=== PATIENT | female | born 1955 | race Caucasian/White ===

== ENCOUNTER 2016-09-01 01:10 | Emergency (ER) | payer BC ==
[~2016-09-01] VITALS: Ht 162.6 cm; Wt 104.3 kg
[~2016-09-01 01:10] MED LIST: ALPR0.257 PO; AMLO1CAP12 PO; CELE200C PO; CIPR500T94 PO; CITA20TA5 PO; ESTR1TAB15 PO; HYDR-2666 PO; LISI-334 PO; PRAV40TA2 PO; TRAM50TA PO; ZOLP10TA4 PO
--- NOTE | 2016-09-01 01:58 | PHYS DOC ---
Past Medical History Past Medical History: Anxiety, Arthritis, CHF, Hypertension Past Surgical History: Appendectomy, Hysterectomy, Knee Replacement Additional Past Surgical Histo: Heart cath, bilat knee replacements Alcohol Use: None Drug Use: None Adult General Chief Complaint Chief Complaint: MECHANICAL FALL HPI HPI 60-year-old female who states she fell while trying to get out of her car and fell onto her right side in which she states she fell on her right knee and her right wrist. She denies hitting her head or having any loss consciousness. Her fall occurred approximately one hour prior to arrival. She now complains of significant neck tenderness, right wrist pain, right hip pain, right knee pain. She has additional complaints of a left tibial surface pain that has been present for the last several weeks. She denies any chest pain or shortness breath. She denies any abdominal pain. She denies any headache. She denies any history of it being on any blood thinning medications. She rates her pain a 6/ 10 on the pain scale and described as an aching sensation in the areas noted above. She was fully ambulatory upon arrival. Review of Systems Review of Systems Constitutional: Denies fever or chills [] Eyes: Denies change in visual acuity, redness, or eye pain [] HENT: Denies nasal congestion or sore throat [] Respiratory: Denies cough or shortness of breath [] Cardiovascular: No additional information not addressed in HPI [] GI: Denies abdominal pain, nausea, vomiting, bloody stools or diarrhea [] : Denies dysuria or hematuria [] Musculoskeletal: Denies back pain, has joint pain [] Integument: Denies rash or skin lesions [] Neurologic: Denies headache, focal weakness or sensory changes [] Endocrine: Denies polyuria or polydipsia [] Current Medications Current Medications Current Medications Medications (Trade) Dose Ordered Sig/Emili Start Time Stop Time Status Last Admin Dose Admin Acetaminophen/ Hydrocodone Bitart (Lortab 5/325) 1 tab 1X ONCE 09/01/16 02:00 09/01/16 02:01 DC 09/01/16 02:56 1 TAB Allergies Allergies Allergies Coded Allergies Type Severity Reaction Last Updated Verified latex Allergy Intermediate 04/09/16 Yes Physical Exam Physical Exam Constitutional: Well developed, well nourished, no acute distress, non-toxic appearance. [] HENT: Normocephalic, atraumatic, bilateral external ears normal, oropharynx moist, no oral exudates, nose normal, in c-collar with noted tenderness to the C7 area, no palpable deformity. [] Eyes: PERRLA, EOMI, conjunctiva normal, no discharge. [] Neck: Normal range of motion, no tenderness, supple, no stridor. [] Cardiovascular:Heart rate regular rhythm, no murmur [] Lungs & Thorax: Bilateral breath sounds clear to auscultation [] Abdomen: Bowel sounds normal, soft, no tenderness, no masses, no pulsatile masses. [] Skin: Warm, dry, no erythema, no rash. [] Back: No tenderness, no CVA tenderness. [] Extremities: Moderate tenderness to the right hip and right wrist with no palpable deformity or crepitus, moderate tenderness to the left tibial surface with no palpable deformity or cellulitis seen, no cyanosis, no clubbing, ROM intact, no edema. [] Neurologic: Alert and oriented X 3, normal motor function, normal sensory function, no focal deficits noted. [] Psychologic: Affect normal, judgement normal, mood normal. [] Current Patient Data Vital Signs Vital Signs Date Time Temp Pulse Resp B/P Pulse Ox O2 Delivery O2 Flow Rate FiO2 09/01/16 03:55 78 157/72 97 Room Air 09/01/16 01:15 97.8 18 97.8 EKG EKG [] Radiology/Procedures Radiology/Procedures CT of the cervical spine reveals the following: There is no cervical spine fracture. Occipital condyles articulate normally with the lateral masses of C1. The odontoid is intact. There is reversal of cervical lordosis but no anterolisthesis or retrolisthesis is appreciated. There is no perching of the facets. Degenerative disc height loss is noted at C4-5, C5-6. There is bilateral uncovertebral hypertrophy at C4-5 causing moderate right mild left foraminal stenosis. There is also bilateral uncovertebral hypertrophy at C5-6 causing moderate bilateral foraminal stenosis. Correlate for right C5 or bilateral C6 radiculopathy symptoms. Soft tissues of the neck show no acute abnormality. Lung apices are clear. Right Wrist 3 View: Negative for any obvious fracture Right hip and AP Pelvis: Negative for any obvious fracture Right Knee 3 View: Negative for any obvious fracture Tibia and fibula left leg view: Negative for any obvious fracture Course & Med Decision Making Course & Med Decision Making Pertinent Labs and Imaging studies reviewed. (See chart for details) 60-year-old female who had a traumatic fall while trying to get out of her car will have x-rays of her right knee, right hip, and right wrist and left tibial area to rule out any acute fractures or bony issues. CT of her cervical spine will also be obtained. Patient does have range of motion in all her affected extremities and I deemed her to be a low risk for any fracture but I counseled her at length that we will interpret her films and and have the radiologist read them in the morning and call her if there are any acute findings. A dose of oral Mantador will be given for her pain. CT of her cervical spine was negative for any acute fracture. Plain views of her right wrist, right hip, right knee, and tibia fibula of the left lower extremity were negative for any acute fracture. The patient was placed in a Velcro wrist splint with strict instructions to remain in the splint and she can receive follow-up in the next several days with her primary care doctor and to return to the ER if she develops any worsening of her pain. She was given a prescription for Mantador for her pain. She was discharged without incident. Dragon Disclaimer Dragon Disclaimer This electronic medical record was generated, in whole or in part, using a voice recognition dictation system. Departure Departure Impression: Primary Impression: Right wrist injury Additional Impression: Neck pain Disposition: 01 HOME, SELF-CARE Condition: STABLE Referrals: BEST RYAN MD (PCP) Patient Instructions: Splint Care, [id number] Additional Instructions: Please follow up with your primary doctor in the next 2-3 days for your recent wrist injury. Remain in your splint until you can be followed. Take motrin or tylenol for your pain. Return to the ER if you develop any worsening of your symptoms. Scripts Hydrocodone/Apap 5-325 (Mantador 5-325 Tablet)1 Each Tablet1 Tab PO PRN Q6HRS PRN PAIN #10 TAB Prov:JOYA FLOOD DO 09/01/16 Problem Qualifiers JOYA FLOOD DO Sep 01, 2016 01:58
[2016-09-01] MEDS ORDERED: HYDROCODONE/APAP 5/325MG TABLET. PO ONE (02:00)
--- NOTE | 2016-09-01 03:13 | RAD ---
PQRS STATEMENT One or more of the following individualized dose reduction techniques were utilized for this study: 1.Automated exposure control 2.Adjustment of the mA and/or kV according to patient size 3.Use of iterative reconstruction technique CT cervical spine Indication:neck pain post fall on ice tonight Reason: neck pain POST FALL ON ICE / Spl. Instructions: / History: Comparison: None] Technique: Multiple contiguous axial images were obtained through the cervical spine. Coronal and sagittal reformations were created. Findings: There is no cervical spine fracture. Occipital condyles articulate normally with the lateral masses of C1. The odontoid is intact. There is reversal of cervical lordosis but no anterolisthesis or retrolisthesis is appreciated. There is no perching of the facets. Degenerative disc height loss is noted at C4-5, C5-6. There is bilateral uncovertebral hypertrophy at C4-5 causing moderate right mild left foraminal stenosis. There is also bilateral uncovertebral hypertrophy at C5-6 causing moderate bilateral foraminal stenosis. Correlate for right C5 or bilateral C6 radiculopathy symptoms. Soft tissues of the neck show no acute abnormality. Lung apices are clear. Impression: Degenerative disc disease greatest at C4-5 and C5-6. No cervical spine fracture. Electronically signed by: Cholo Perez (Sep 01, 2016 03:12:51)
[2016-09-01] MEDS ORDERED: HYDR-971 PO (03:39)
[2016-09-01 03:55] VITALS: BP 157/72
--- NOTE | 2016-09-01 07:43 | RAD ---
Right knee, 3 views, 09/01/2016: History: Fall, pain No fracture or dislocation is identified. No significant joint effusion is seen. IMPRESSION: No acute right knee abnormality is detected. Left tibia and fibula, 2 views, 09/01/2016: A total knee prosthesis is in place in satisfactory position. No acute fracture is identified. There is subcutaneous edema about the lower leg. IMPRESSION: No acute bony abnormality is detected. Pelvis with right hip, 3 views, 09/01/2016: No fracture or dislocation is identified. The hip joint spaces are well-maintained with only minimal marginal spurring.
--- NOTE | 2016-09-01 07:45 | RAD ---
Right wrist, 3 views, 09/01/2016: History: Fall, pain No acute fracture or dislocation is identified. There is minimal degenerative change at the radiocarpal articulation and the first CMC joint. IMPRESSION: No acute bony abnormality is detected.
== END 2016-09-01 03:56 | disposition home or self-care (01) ==
LOC: ER 01:10
DX: S69.91XA Unspecified injury of right wrist, hand and finger(s), initial encounter (principal); M54.2 Cervicalgia; M25.551 Pain in right hip; M19.90 Unspecified osteoarthritis, unspecified site; I11.0 Hypertensive heart disease with heart failure; I50.9 Heart failure, unspecified; Z91.040 Latex allergy status; W19.XXXA Unspecified fall, initial encounter; Y93.89 Activity, other specified; Y92.89 Other specified places as the place of occurrence of the external cause; Y99.8 Other external cause status
CPT/HCPCS: 29125; 72125; 73110; 73502; 73562; 73590; 99284-25

== ENCOUNTER 2016-12-05 19:52 | Emergency (ER) | payer BC ==
[~2016-12-05 19:52] MED LIST changes: +HYDR-971 PO
[2016-12-05 20:24] VITALS: BP 142/62
[2016-12-05] MEDS ORDERED: NAPR500T8 PO (21:22)
[2016-12-05] MEDS ORDERED: HYDR-971 PO (21:22)
[2016-12-05] MEDS ORDERED: METH4TAB2 PO (21:22)
--- NOTE | 2016-12-05 21:23 | PHYS DOC ---
Past Medical History Past Medical History: Anxiety, Arthritis, CHF, Depression, Diverticulitis, High Cholesterol, Hypertension Past Surgical History: Appendectomy, Hysterectomy, Knee Replacement, Other Additional Past Surgical Histo: COLON SX Alcohol Use: None Drug Use: None Adult General Chief Complaint Chief Complaint: KNEE INJURY HPI HPI Patient is a 61 year old female with history of anxiety hypertension CHF depression who presents today with moderate right medial knee pain that has been going on since July when she fell on ice. She states she was seen in the ED had x-rays done which were negative. She states she has followed up with orthopedic doctor 6 weeks ago, she states she received a steroid injection which she feels made the pain worse. Patient states the pain is worse when she is sleeping. She states she currently cannot sleep due to the pain. Patient denies any new injuries. Review of Systems Review of Systems Constitutional: Denies fever or chills [] Musculoskeletal: Right knee pain Integument: Denies rash or skin lesions [] Neurologic: Denies headache, focal weakness or sensory changes [] Endocrine: Denies polyuria or polydipsia [] Current Medications Current Medications Current Medications Medications (Trade) Dose Ordered Sig/Emili Start Time Stop Time Status Last Admin Dose Admin Dexamethasone Sodium Phosphate (Decadron) 10 mg 1X ONCE 12/05/16 21:30 12/05/16 21:31 12/05/16 21:08 10 MG Ketorolac Tromethamine (Toradol Im) 60 mg 1X ONCE 12/05/16 21:30 12/05/16 21:31 12/05/16 21:08 60 MG Allergies Allergies Allergies Coded Allergies Type Severity Reaction Last Updated Verified latex Allergy Intermediate 04/09/16 Yes Physical Exam Physical Exam Constitutional: Well developed, well nourished, no acute distress, non-toxic appearance. [] HENT: Normocephalic, atraumatic, bilateral external ears normal, oropharynx moist, no oral exudates, nose normal. [] Skin: Warm, dry, no erythema, no rash. [] Back: No tenderness, no CVA tenderness. [] Extremities: Right knee with no obvious deformity. Tenderness on palpation of the right medial knee. Full range of motion to the knee. Negative Kareem sign, negative Kareem sign, negative anterior-posterior drawer sign to the right knee. +2 right pedal pulse. Cap refill less than 2 seconds the right lower extremity. Sensation intact to the right lower extremity. Neurologic: Alert and oriented X 3, normal motor function, normal sensory function, no focal deficits noted. [] Psychologic: Affect normal, judgement normal, mood normal. [] Current Patient Data Vital Signs Vital Signs Date Time Temp Pulse Resp B/P Pulse Ox O2 Delivery O2 Flow Rate FiO2 12/05/16 20:24 98.1 82 20 98 Room Air 98.1 EKG EKG [] Radiology/Procedures Radiology/Procedures [] Course & Med Decision Making Course & Med Decision Making Pertinent Labs and Imaging studies reviewed. (See chart for details) Patient is in the ED with right knee pain after falling down in July which is approximately 4 months ago. She had steroid injection to the knee 6 weeks ago which she feels made it worse. She currently states the pain is severe at night when she tries to sleep. Right knee x-rays interpreted by Dr. Wheeler are negative for any acute findings. Dragon Disclaimer Dragon Disclaimer This electronic medical record was generated, in whole or in part, using a voice recognition dictation system. Departure Departure Impression: Primary Impression: Knee pain Disposition: HOME, SELF-CARE Condition: STABLE Referrals: BEST RYAN MD (PCP) DENISE FRANKLIN II, MD Follow-up with the orthopedic doctor on Thursday Patient Instructions: Knee Pain, [id number] Additional Instructions: You were seen for ongoing right knee pain. We recommend you follow-up with the orthopedic doctor as soon as he can. Ice and elevate the extremity. You can apply an Jt wrap to the knee as needed and tolerated. Scripts Naproxen 500 Mg Tablet.dr1 Tab PO BID #60 TAB Ref 2 Prov:JESSICA CONNER APRN 12/05/16 Methylprednisolone (Medrol)4 Mg Tab.ds.pk1 Pkg PO UD #1 PKG Prov:JESSICA CONNER ONLINE MERCHANDISING MANAGER 12/05/16 Hydrocodone/Apap 5-325 ([place] 5-325 Tablet)1 Each Tablet1 Tab PO Q6-8HRS PRN PAIN #10 TAB Prov:JESSICA CONNER APRN 12/05/16 Problem Qualifiers Primary Impression: Knee pain Laterality: right Chronicity: acute Qualified Code: M25.561 - Pain in right knee JESSICA CONNER ONLINE MERCHANDISING MANAGER Dec 05, 2016 21:23
[2016-12-05] MEDS ORDERED: DEXAMETHASONE SOD PHOS 20 MG/5 ML VIAL. IM ONE (21:30)
[2016-12-05] MEDS ORDERED: KETOROLAC TROMETHAMINE 60 MG/2 ML INJ. IM ONE (21:30)
--- NOTE | 2016-12-06 08:29 | RAD ---
Three-view right knee radiographs 12/05/2016 Clinical history: Fall on ice 3 months ago with persistent right knee pain. AP, lateral, oblique and sunrise digital radiographs of the right knee were obtained. No fracture or dislocation of the right knee is seen. Very mild degenerative changes are seen involving all 3 compartments of the right knee. Impression: Very mild degenerative changes are seen involving the right knee. No acute osseous abnormality is seen.
== END 2016-12-05 21:38 | disposition home or self-care (01) ==
LOC: ER 19:52
DX: M25.561 Pain in right knee (principal); F41.9 Anxiety disorder, unspecified; M19.90 Unspecified osteoarthritis, unspecified site; I11.0 Hypertensive heart disease with heart failure; I50.9 Heart failure, unspecified; F32.9 Major depressive disorder, single episode, unspecified; E78.00 Pure hypercholesterolemia, unspecified; Z96.659 Presence of unspecified artificial knee joint; Z91.040 Latex allergy status
CPT/HCPCS: 73564; 96372; 99284; J1100; J1885

== ENCOUNTER → 2017-01-21 | Outpatient (CLI) | payer BC ==
[~2017-01-21] MED LIST changes: +METH4TAB2 PO; +NAPR500T8 PO
--- NOTE | 2017-01-21 13:46 | KCIC ---
Procedure: MR of the right knee HISTORY: Right knee pain anteromedially for 2 or 3 months. No known injury. TECHNIQUE: Routine multiplanar sequences are obtained. FINDINGS: Mild signal in the posterior horn of the medial with blunting, compatible with a tear. No evidence of a lateral meniscal tear. The anterior and posterior cruciate ligaments are intact. Medial collateral ligament is intact. Iliotibial band, fibular collateral ligament, biceps femoris tendon and popliteus tendon are intact. Extensor mechanism is intact. Small joint effusion. No evidence of osteochondral loose body. [id number] chondromalacia at the medial joint compartment. Mild chondromalacia at the lateral joint compartment. Moderate chondromalacia at the patella. No bone lesion. No acute fracture. Small Andres cyst. IMPRESSION: 1. Medial meniscal tear. 2. Primary osteoarthritis. Electronically signed by: Logan Malagon MD (01/21/2017 1:43 PM)
== END | disposition home or self-care (01) ==
LOC: KCIC MRI 11:37
PROVIDERS: ATTEND Orthopaedic Surgery
DX: S83.241A Other tear of medial meniscus, current injury, right knee, initial encounter (principal); M17.11 Unilateral primary osteoarthritis, right knee; M94.261 Chondromalacia, right knee; X58.XXXA Exposure to other specified factors, initial encounter; Y93.89 Activity, other specified; Y92.89 Other specified places as the place of occurrence of the external cause; Y99.8 Other external cause status
CPT/HCPCS: 73721

== ENCOUNTER 2018-02-18 18:10 | Emergency (ER) | payer BC | END 2018-02-18 21:03 | disposition home or self-care (01) | LOC: ER 18:10 | DX: L03.116 Cellulitis of left lower limb (principal); R10.32 Left lower quadrant pain; G89.29 Other chronic pain; F41.9 Anxiety disorder, unspecified; M19.90 Unspecified osteoarthritis, unspecified site; I11.0 Hypertensive heart disease with heart failure; I50.9 Heart failure, unspecified; F32.9 Major depressive disorder, single episode, unspecified; E78.00 Pure hypercholesterolemia, unspecified; Z90.710 Acquired absence of both cervix and uterus; Z91.040 Latex allergy status | CPT/HCPCS: 93971; 99284 ==

== ENCOUNTER → 2018-08-24 | Outpatient (CLI) | payer BC ==
[2018-02-18 20:30] VITALS: BP 142/65
[~2018-08-24] MED LIST changes: -CITA20TA5 PO; +CITA20TA6 PO; -HYDR-2666 PO; +HYDR-2761 PO; +HYDR-3164 PO; -HYDR-971 PO; +MUPI15CR TP; +SULF1TAB24 PO
--- NOTE | 2018-08-24 17:16 | KCIC ---
Bilateral digital screening mammograms: Reason for examination: Routine screening. No previous exams for comparison. New baseline. Interpretation was made with the benefit of CAD. The skin and nipples show no abnormalities. No abnormal axillary lymph nodes are seen. The breast parenchyma shows scattered fibroglandular density. (Breast density: Category B.) There is a small nodular density at the 2:00 B position of the left breast. This may represent intramammary lymph node but recommend further evaluation with ultrasound. There are no other dominant masses, suspicious calcifications or architectural distortions. Impression: Small nodular density at the 2:00 B position of the left breast. Recommend further evaluation with ultrasound. BI-RADS Category 0: Incomplete. Needs additional imaging evaluation. "Our facility is accredited by the [employer] Mammography [employer]." This patient's information has been entered into a reminder system for the patient to be notified with the results of her examination and a target date for the next mammogram. Electronically signed by: Triny Moody MD (08/24/2018 5:11 PM) [id number]
== END | disposition home or self-care (01) ==
LOC: KCIC MAMMO 14:58
PROVIDERS: ATTEND Family Medicine
DX: Z12.31 Encounter for screening mammogram for malignant neoplasm of breast (principal)
CPT/HCPCS: 77067

== ENCOUNTER → 2018-08-27 | Outpatient (CLI) | payer BC ==
[2018-02-18 20:30] VITALS: BP 142/65
[~2018-08-27] MED LIST changes: +ALPR0.5T6 PO; -AMLO1CAP12 PO; +AMLO1CAP13 PO
--- NOTE | 2018-08-27 14:09 | KCIC ---
Left breast ultrasound: Reason for examination: Nodular density on screening mammogram. Comparison is made to mammographic exam dated 08/24/2018. Ultrasound examination of the left breast was performed in the area of mammographic concern and at the left axilla. In the 2:00 position 6 cm from the nipple and corresponding to the area of mammographic concern, there is a hypoechoic circumscribed lesion in parallel orientation measuring 7.2 mm in greatest dimension. This could represent a small fibroadenoma or a small intramammary lymph node. This has benign appearance but recommend 6 month sonographic follow-up. No other cystic or solid lesions are seen. No abnormal appearing lymph nodes are seen in the axilla. IMPRESSION: Small benign-appearing nodule at the 2:00 position measuring 7.2 mm in size which may represent a small fibroadenoma or intramammary lymph node. Recommend reevaluation with left breast mammograms and ultrasound in 6 months. BI-RADS Category 3: Probably Benign. "Our facility is accredited by the [employer] Mammography [employer]." This patient's information has been entered into a reminder system for the patient to be notified with the results of her examination and a target date for the next mammogram. Electronically signed by: Triny Moody MD (08/27/2018 2:05 PM) [id number]
== END | disposition home or self-care (01) ==
LOC: KCIC US 13:31
PROVIDERS: ATTEND Family Medicine
DX: N63.21 Unspecified lump in the left breast, upper outer quadrant (principal)
CPT/HCPCS: 76641

== ENCOUNTER 2020-10-25 18:17 | Emergency (ER) | payer MEDICARE ==
[~2020-10-25] VITALS: Ht 162.6 cm; Wt 117.0 kg
[~2020-10-25 18:17] MED LIST changes: +ESTR-113 PO; -ESTR1TAB15 PO; -LISI-334 PO; +LISI20TA18 PO
[2020-10-25 18:30] VITALS: BP 141/94
--- NOTE | 2020-10-25 18:50 | ED.ADGEN ---
Past Medical History Past Medical History: Anxiety, Arthritis, CHF, Depression, Diverticulitis, Diverticulosis, High Cholesterol, Hypertension Past Surgical History: Appendectomy, Hysterectomy, Knee Replacement, Other Additional Past Surgical Histo: COLON SX Smoking Status: Former Smoker Alcohol Use: None Drug Use: None General Adult EDM: Chief Complaint: FINGER INJURY HPI: HPI: Patient is a 65 year old female coming in after left pinky injury. States she shut it in the bed of a truck 1 hour prior to arrival. Has had swelling and pain. Has a small superficial cut to the inner aspect of the proximal phalangeal. Tetanus up-to-date. Otherwise been well. Review of Systems: Review of Systems: All other systems within normal limits except for as noted in the HPI Allergies: Allergies: Allergies Coded Allergies Type Severity Reaction Last Updated Verified latex Allergy Intermediate 04/09/16 Yes Physical Exam: PE: Constitutional: Well developed, well nourished, no acute distress, non-toxic appearance. [] HENT: Normocephalic, atraumatic, bilateral external ears normal, nose normal. [] Eyes: PERRLA, conjunctiva normal, no discharge. [] Neck: No rigidity, supple, no stridor. [] Cardiovascular: Regular rate and rhythm, brisk cap refill [] Lungs & Thorax: Non labored symmetric respirations, no tachypnea or respiratory distress [] Abdomen: Soft, nondistended. Skin: Warm, dry, no erythema, no rash. [] Back: Unremarkable Extremities: No deformities, range of motion grossly intact, no lower extremity edema. Left fifth finger: Diffuse swelling, range of motion grossly intact but limited due to swelling. Brisk cap refill. No sensory deficits. [] Neurologic: Alert and oriented X 3, no focal deficits noted. [] Psychologic: Affect normal, judgement normal, mood normal. [] EKG: EKG: [] Heart Score: C/O Chest Pain: N/A Risk Factors: Risk Factors: DM, Current or recent (<one month) smoker, HTN, HLP, family history of CAD, obesity. Risk Scores: Score 0 - 3: 2.5% MACE over next 6 weeks - Discharge Home Score 4 - 6: 20.3% MACE over next 6 weeks - Admit for Clinical Observation Score 7 - 10: 72.7% MACE over next 6 weeks - Early Invasive Strategies Radiology/Procedures: Radiology/Procedures: [] Course & Med Decision Making: Course & Med Decision Making Wound dressed and fingers kyle taped. Rickey Disclaimer: Rickey Disclaimer: This electronic medical record was generated, in whole or in part, using a voice recognition dictation system. Departure Departure Impression: Primary Impression: Crushing injury of left little finger Disposition: 01 DC HOME SELF CARE/HOMELESS Condition: STABLE Referrals: MIKE BRAXTON DO (PCP) Patient Instructions: Crush Injury, Fingers or Toes ANSLEY YANES MD Oct 25, 2020 18:50
--- NOTE | 2020-10-25 18:50 | RAD ---
Left fifth finger 3 views. HISTORY: Crush injury 3 views were taken the left fifth finger. There is not evidence of an acute fracture or osseous abnor mality. IMPRESSION: 1. No acute fracture noted in the left fifth finger. Electronically signed by: Ronny Joyner MD (10/25/2020 6:47 PM) [facility]
== END 2020-10-25 19:00 | disposition home or self-care (01) ==
LOC: ER 18:17
DX: S67.197A Crushing injury of left little finger, initial encounter (principal); E78.00 Pure hypercholesterolemia, unspecified; I11.0 Hypertensive heart disease with heart failure; I50.9 Heart failure, unspecified; Z87.891 Personal history of nicotine dependence; Z91.040 Latex allergy status; W23.0XXA Caught, crushed, jammed, or pinched between moving objects, initial encounter; Y93.89 Activity, other specified; Y92.89 Other specified places as the place of occurrence of the external cause; Y99.8 Other external cause status
CPT/HCPCS: 73140; 99283

== ENCOUNTER 2021-09-11 16:02 | Observation (INO) | payer MEDICARE ==
[~2021-09-11] VITALS: Ht 162.6 cm; Wt 120.0 kg
[2021-09-11 16:29] LABS: BASO # 0.1 x10^3/uL (0.0-0.2); BASO % 1 % (0-3); EOS % 0 % (0-3); HEMATOCRIT 37.6 % (36.0-47.0); LYMPH # 1.4 x10^3/uL (1.0-4.8); LYMPH % 14 % (24-48); MEAN CORPUSCULAR HEMOGLOBIN 26 pg (25-35); MEAN CORPUSCULAR HGB CONC 32 g/dL (31-37); MEAN CORPUSCULAR VOLUME 82 fL (79-100); MONO # 0.5 x10^3/uL (0.0-1.1); MONO % 5 % (0-9); NEUT # 8.4 x10^3/uL (1.8-7.7); NEUT % 81 % (31-73); PLATELET COUNT 268 x10^3/uL (140-400); RED BLOOD COUNT 4.59 x10^6/uL (3.50-5.40); RED CELL DISTRIBUTION WIDTH 14.2 % (11.5-14.5); WHITE BLOOD COUNT 10.4 x10^3/uL (4.0-11.0)
[2021-09-11] MEDS ORDERED: FAMOTIDINE 20 MG/2 ML VIAL IVP ONE (16:30)
[2021-09-11] MEDS ORDERED: fentaNYL PF VIAL 100 MCG/2 ML VIAL IVP ONE (16:30)
[2021-09-11] MEDS ORDERED: diphenhydrAMINE 50 MG/ML VIAL IVP ONE (16:30)
[2021-09-11] MEDS ORDERED: methylPREDNISolone SOD SUCC PF 125 MG/2 ML VIAL. IV ONE (16:30)
[2021-09-11 16:45] LABS: CALCIUM 8.3 mg/dL (8.5-10.1); CREATININE 1.2 mg/dL (0.6-1.0); GFR 44.8; POTASSIUM 3.7 mmol/L (3.5-5.1)
--- NOTE | 2021-09-11 16:46 | PHYS DOC ---
Past Medical History Past Medical History: Anxiety, Arthritis, CHF, Depression, Diverticulitis, Diverticulosis, High Cholesterol, Hypertension Past Surgical History: Appendectomy, Hysterectomy, Knee Replacement, Other Additional Past Surgical Histo: COLON SX Smoking Status: Former Smoker Alcohol Use: None Drug Use: None General Adult EDM: Chief Complaint: CHEST PAIN HPI: HPI: Patient is a 65 year old female who presents with went to urgent care today due to a rash that she has on her chest and under her breast that itches really bad. She states that the redness and it butts. While she was there she suddenly began having chest pain to the left side of her chest going into her left arm, left jaw and into her back. She states it is a sharp pain but the chest feels more like a pressure type pain. She was given a 324 mg aspirin and 1 nitro. The nitro did help relieve her pain. She states now she has headache. At that time her pain was a 10 out of 10. She also states to me that approximately earlier this month she was sick for 2 weeks with a cough, fatigue, shortness of breath and some chest pain. She states she was never tested for Covid. She states she discussed self quarantine. She is vaccinated for Covid. She has a history of obesity, high cholesterol, hypertension, CHF, diverticulitis, anxiety, hypertension, hysterectomy, knee replacement, arthritis, colon surgery. Review of Systems: Review of Systems: Constitutional: Denies fever or chills. [] Eyes: Denies change in visual acuity. [] HENT: Denies nasal congestion or sore throat. [] Respiratory: Denies cough or +shortness of breath. [] Cardiovascular: + chest pain or denies edema. [] GI: Denies abdominal pain, +nausea, denies vomiting, bloody stools or diarrhea. [] : Denies dysuria. [] Musculoskeletal: +upper bcak back pain or denies joint pain. [] Integument: Denies rash. [] Neurologic: + headache post nitro, denies focal weakness or sensory changes. [] Endocrine: Denies polyuria or polydipsia. [] Lymphatic: Denies swollen glands. [] Psychiatric: Denies depression or anxiety. [] Heart Score: C/O Chest Pain: Yes HEART Score for Chest Pain: HEART Score for Chest Pain Response (Comments) Value History Moderately Suspicious 1 ECG Nonspecific Repolarizatio 1 Age > 65 2 Risk Factors >3 Risk Factors or Hx CAD 2 Troponin < Normal Limit 0 Total 6 Risk Factors: Risk Factors: DM, Current or recent (<one month) smoker, HTN, HLP, family history of CAD, obesity. Risk Scores: Score 0 - 3: 2.5% MACE over next 6 weeks - Discharge Home Score 4 - 6: 20.3% MACE over next 6 weeks - Admit for Clinical Observation Score 7 - 10: 72.7% MACE over next 6 weeks - Early Invasive Strategies Current Medications: Current Medications Medications (Trade) Dose Ordered Sig/Emili Start Time Stop Time Status Last Admin Dose Admin Diphenhydramine HCl (Benadryl) 25 mg 1X ONCE 09/11/21 16:30 09/11/21 16:31 UNV Famotidine (Pepcid Vial) 20 mg 1X ONCE 09/11/21 16:30 09/11/21 16:31 UNV Fentanyl Citrate (Fentanyl 2ml Vial) 50 mcg 1X ONCE 09/11/21 16:30 09/11/21 16:31 UNV Methylprednisolone Sodium Succinate (SOLU-Medrol 125MG VIAL) 125 mg 1X ONCE 09/11/21 16:30 09/11/21 16:31 UNV Allergies: Allergies: Allergies Coded Allergies Type Severity Reaction Last Updated Verified latex Allergy Intermediate 09/11/21 Yes morphine Allergy Mild SICK 09/11/21 Yes Physical Exam: PE: Constitutional: Well developed, well nourished, no acute distress, non-toxic appearance. [] HENT: Normocephalic, atraumatic, bilateral external ears normal, oropharynx moist, no oral exudates, nose normal. [] Eyes: PERRLA, EOMI, conjunctiva normal, no discharge. [] Neck: Normal range of motion, no tenderness, supple, no stridor. [] Cardiovascular:Heart rate regular rhythm, no murmur [] Lungs & Thorax: Bilateral upper breath sounds clear and lower diminished to auscultation [] Abdomen: Bowel sounds normal, soft, no tenderness, no masses, no pulsatile masses. [] Skin: Warm, dry, no erythema, redness hives or yeasty type rash to mid chest and onto her breast and down into the upper abdomen area and under the breast. [] Back: No tenderness, no CVA tenderness. [] Extremities: No tenderness, no cyanosis, no clubbing, ROM intact, no edema. [] Neurologic: Alert and oriented X 3, normal motor function, normal sensory function, no focal deficits noted. [] Psychologic: Affect normal, judgement normal, mood normal. [] EKG: EK and read by Dr. Goncalves is a sinus rhythm and no STEMI Radiology/Procedures: Radiology/Procedures: [][facility] [address] [place] [address] IMAGING REPORT Signed PATIENT: EARL BAUTISTA ACCOUNT: [id number] : 1955 LOCATION: ER AGE: 65 SEX: F EXAM STATUS: REG ER ORD. PHYSICIAN: DELROY ROGERS APRN REASON: CHEST PAIN RADIATING TO THE BACK, SOA PROCEDURE: CT ANGIOGRAPHY CHEST Exam: CT of chest with contrast INDICATION: Chest pain radiating to back TECHNIQUE: Sequential axial images through the chest obtained following the administration of 90 mL of Omni 350 IV contrast. Sagittal and coronal reformatted images were reconstructed from the axial data and reviewed. 3-D reformatted images were reconstructed from the axial data and reviewed. Exposure: One or more of the following in the visualized dose reduction techniques were utilized for this examination: 1. Automated exposure control 2. Adjustment of the MA and/or KV according to patient size 3. Use of iterative of reconstructive technique Comparisons: Chest x-ray same day FINDINGS: Visualized portions of the thyroid are unremarkable. No enlarged mediastinal lymph nodes are identified. Heart size is normal. No pericardial effusion. Thoracic aorta has normal course and caliber. Pulmonary artery is not enlarged. No pulmonary embolus identified within the main, lobar or segmental pulmonary arteries. Airways are patent. No consolidation or pneumothorax. No suspicious lung nodules. No pleural effusion or thickening. Visualized upper abdomen is unremarkable. No suspicious osseous lesions or acute fractures. IMPRESSION: No pulmonary embolus identified within the main, lobar or segmental pulmonary arteries. Electronically signed by: Dick Dent MD (09/11/2021 8:05 PM) [facility] DICTATED and SIGNED BY: DICK DENT MD DATE: 09/11/[id number] 0 Course & Med Decision Making: Course & Med Decision Making Pertinent Labs and Imaging studies reviewed. (See chart for details) COVID-19 CRITERIA: The patient was evaluated during the global COVID-19 pandemic, and that diagnosis was suspected/considered upon their initial presentation. Their evaluation, treatment and testing was consistent with current guidelines for patients who present with complaints or symptoms that may be related to COVID-19. Alert and oriented x4. Speaks in full clear sentences. Ambulatory with a steady gait. Morbidly obese. [place] warm and dry. She has a large area of redness that is on her mid chest that goes down onto her breast and under her breast and slightly onto the abdomen area. It almost looks like hives but chele ent states that it butts and is itchy. Patient states that she saw her primary care provider and they put her on prednisone for the rash and amoxicillin due to the rash and she states that she was having some open wounds on her fingers. Patient is a poor historian. 183: Patient has a acute kidney injury. Patient to be admitted for chest pain observation. Still awaiting radiology reads as the radiology system is down at this time. 1845: Radiologist called to let me know that the CTA chest showed no PE or no dissection. The radiology system is still down at this time. Patient to be admitted to hospitalist. Patient's rash has gotten much better after Solu- Medrol, Benadryl and Pepcid given and she states it is not itching or burning like it was. The hives rash has gotten much better upon reexamination. [] Rickey Disclaimer: Rickey Disclaimer: This electronic medical record was generated, in whole or in part, using a voice recognition dictation system. COVID-19 Patient Risks: Age 65 or older: Yes Sign of co-morbidity: Yes Exp to person + for COVID: No Exp to PUI: No Travel from affected area: No Lower respiratory symptoms: Yes Fever: No Other: No PPE Use: Full PPE with N95 mask or PAPR: Yes Departure Departure Impression: Primary Impression: Chest pain Qualified Codes: R07.9 - Chest pain, unspecified Additional Impressions: Hypomagnesemia Acute kidney injury Disposition: ADMITTED INPATIENT Admitting Physician: DELILAH Condition: STABLE Referrals: MIKE BRAXTON DO (PCP) DELROY ROGERS APRN Sep 11, 2021 16:46
[2021-09-11 16:59] LABS: ALBUMIN 3.1 g/dL (3.4-5.0); ALBUMIN/GLOBULIN RATIO 0.8 (1.0-1.7); MAGNESIUM 1.7 mg/dL (1.8-2.4); TOTAL BILIRUBIN 0.3 mg/dL (0.2-1.0); TOTAL PROTEIN 6.9 g/dL (6.4-8.2)
[2021-09-11] MEDS ORDERED: IOHEXOL 350 MG/ML 100 ML VIAL. IV ONE (17:15)
[2021-09-11] MEDS ORDERED: MAGNESIUM SULFATE 2GM 50 ML IV ONE (17:15)
[2021-09-11] MEDS ORDERED: CONTRAST GIVEN. MC PRN (17:15)
[2021-09-11 17:51] LABS: BILIRUBIN,URINE NEGATIVE (NEG); CLARITY,URINE CLEAR; COLOR,URINE YELLOW; NITRITE,URINE NEGATIVE (NEG); PROTEIN,URINE NEGATIVE (NEG-TRACE)
[2021-09-11 17:58] LABS: BARBITURATES NEG (NEG); BENZODIAZEPINES NEG (NEG); CANNABINOIDS NEG (NEG); COCAINE NEG (NEG); METHADONE NEG (NEG); OPIATES NEG (NEG); PHENCYCLIDINE NEG (NEG)
[2021-09-11 17:59] LABS: AMPHETAMINE/METHAMPHETAMINE NEG (NEG)
[2021-09-11 18:02] LABS: BACTERIA,URINE 0 /HPF (0-FEW); RBC,URINE 0 /HPF (0-2)
[2021-09-11] MEDS ORDERED: SENNOSIDES 8.6 MG TABLET PO PRN (18:45)
[2021-09-11] MEDS ORDERED: diphenhydrAMINE 50 MG/ML VIAL IVP PRN (18:45)
[2021-09-11] MEDS ORDERED: DOCUSATE SODIUM 100 MG CAPSULE. PO PRN (18:45)
[2021-09-11] MEDS ORDERED: NITROGLYCERIN SUBLINGUAL 0.4 MG BOTTLE OF 25. SL PRN (18:45)
[2021-09-11] MEDS ORDERED: PROCHLORPERAZINE 10 MG/2 ML VIAL. IV PRN (18:45)
[2021-09-11] MEDS ORDERED: ONDANSETRON PF 4 MG/2 ML VIAL. IVP PRN (18:45)
[2021-09-11] MEDS ORDERED: diphenhydrAMINE HCL 25 MG CAPSULE PO PRN (18:45)
[2021-09-11] MEDS ORDERED: ACETAMINOPHEN 325 MG TABLET. PO PRN ×2 (18:45)
[2021-09-11] MEDS ORDERED: DEXTROSE 50% 25 GM / 50ML DISP.SYRIN. IV PRN (18:45)
[2021-09-11] MEDS ORDERED: ZOLPIDEM 5 MG TABLET. PO PRN ×2 (18:45→22:30)
--- NOTE | 2021-09-11 18:54 | PDOC1 ---
History and Physical Date of Service: DOS: DATE: 09/11/21 TIME: 18:37 Chief Complaint: Chief Complain: Chest pain. History of Present Illness: HPI: 65-year-old female with past medical history of depression, hypertension, dyslipidemia who comes in for evaluation for chest pain. She also had a rash when she went to urgent care on Thursday and she was given prednisone for 3 days. She describes the rash as swelling on her extremities and itchiness on her scalp under her breast, under her armpits, and her wrist and hands. She did notice chest pain on Thursday that was substernal in nature and radiated to her back. She also had pain on her daughter back and neck. She was given 325 mg of aspirin and nitro sublingual tablet and it did relieve her pain. Pain was 10 out of 10. Patient is vaccinated for Covid Upon further questioning, patient was cleaning out her house with her grandchildren. She was moving furniture around and cleaning all fortunato curtains and linens. Past Medical/Surgical History: PMH/PSH: Past Medical History: Anxiety, Arthritis, CHF, Depression, Diverticulitis, Diverticulosis, High Cholesterol, Hypertension Past Surgical History: Appendectomy, Hysterectomy, Knee Replacement, COLON SX Allergies: Allergies: Coded Allergies: latex (Verified Allergy, Intermediate, 09/11/21) morphine (Verified Allergy, Mild, SICK, 09/11/21) Family History: Family History: Positive for lung cancer, hypertension, Alzheimer's disease Social History: Social History: Denies any alcohol, tobacco or drug abuse Current Medications: Current Medications Current Medications Fentanyl Citrate (Fentanyl 2ml Vial) 50 mcg 1X ONCE IVP Last administered on 09/11/21at 17:00; Start 09/11/21 at 16:30; Stop 09/11/21 at 16:31; Status DC Methylprednisolone Sodium Succinate (SOLU-Medrol 125MG VIAL) 125 mg 1X ONCE IV Last administered on 09/11/21at 16:54; Start 09/11/21 at 16:30; Stop 09/11/21 at 16:31; Status DC Famotidine (Pepcid Vial) 20 mg 1X ONCE IVP Last administered on 09/11/21at 16:58; Start 09/11/21 at 16:30; Stop 09/11/21 at 16:31; Status DC Diphenhydramine HCl (Benadryl) 25 mg 1X ONCE IVP Last administered on 09/11/21at 16:30; Start 09/11/21 at 16:30; Stop 09/11/21 at 16:31; Status DC Iohexol (Omnipaque 350 Mg/ml) 90 ml 1X ONCE IV Last administered on 09/11/21at 17:11; Start 09/11/21 at 17:15; Stop 09/11/21 at 17:16; Status DC Info (CONTRAST GIVEN -- Rx MONITORING) 1 each PRN DAILY PRN MC SEE COMMENTS; Start 09/11/21 at 17:15; Stop 09/13/21 at 17:14 Magnesium Sulfate 50 ml @ 25 mls/hr 1X ONCE IV Last administered on 09/11/21at 17:42; Start 09/11/21 at 17:15; Stop 09/11/21 at 19:14 Active Scripts Active Reported Alprazolam 0.5 Mg Tablet 1 Tab PO TID Tramadol Hcl 50 Mg Tablet 100 Mg PO BID Citalopram Hbr (Citalopram Hydrobromide) 20 Mg Tablet 2 Tab PO HS Celebrex (Celecoxib) 200 Mg Capsule 200 Mg PO BID 30 Days Zolpidem Tartrate 10 Mg Tablet 10 Mg PO HS Amlodipine-Benazepril 10-20 Mg (Amlodipine Besylate/Benazepril) 1 Each Capsule 1 Each PO DAILY ROS: Review of Systems Review of System REVIEW OF SYSTEMS: GENERAL: Denies weakness SKIN: No bruising, hair changes or rashes. EYES: No blurred, double or loss of vision. NOSE AND THROAT: No history of nosebleeds, hoarseness or sore throat. HEART: Positive for chest pain LUNGS: Denies cough, hemoptysis, wheezing or shortness of breath. GASTROINTESTINAL: Denies changes in appetite, nausea, vomiting, diarrhea or constipation. GENITOURINARY: No history of frequency, urgency, hesitancy or nocturia. NEUROLOGIC: Denies history of numbness, tingling, or tremor. PSYCHIATRIC: No history of panic, anxiety or depression. ENDOCRINE: No history of heat or cold intolerance, polyuria or polydipsia. EXTREMITIES: Positive for rash Physical Exam: Vital Signs: Vital Signs Date Time Temp Pulse Resp B/P (MAP) Pulse Ox O2 Delivery O2 Flow Rate FiO2 09/11/21 17:24 94 16 127/58 (81) 96 Room Air 09/11/21 16:13 98.6 98.6 Physcial Exam: General: Well developed, well nourished, no acute distress, well appearing HEENT: Pupils equally round and reactive to light, EOMI, no discharge, normal conjunctiva Neck: Supple, no nuchal rigidity, no JVD, trachea midline, no tenderness Cardiac: RRR, no murmurs, no gallops, no rubs Chest/Lungs: CTAB, no wheeze, no rhonchi, no crackles Abdomen: Obese, soft, non-distended, no guarding, no peritoneal signs, non- tender Back: No tenderness Extremities: no edema, pulses intact, non-tender,capillary refill <3 sec bilateral upper and lower extremities, Neuro: Alert and oriented x 4, no focal deficits, normal speech Skin: Urticarial lesions under her breast, her hands with excoriations and some excoriations on her scalp. Labs: Labs: Laboratory Tests Test 09/11/21 16:22 09/11/21 17:37 White Blood Count 10.4 x10^3/uL (4.0-11.0) Red Blood Count 4.59 x10^6/uL (3.50-5.40) Hemoglobin 12.0 g/dL (12.0-15.5) Hematocrit 37.6 % (36.0-47.0) Mean Corpuscular Volume 82 fL (79-100) Mean Corpuscular Hemoglobin 26 pg (25-35) Mean Corpuscular Hemoglobin Concent 32 g/dL (31-37) Red Cell Distribution Width 14.2 % (11.5-14.5) Platelet Count 268 x10^3/uL (140-400) Neutrophils (%) (Auto) 81 % (31-73) Lymphocytes (%) (Auto) 14 % (24-48) Monocytes (%) (Auto) 5 % (0-9) Eosinophils (%) (Auto) 0 % (0-3) Basophils (%) (Auto) 1 % (0-3) Neutrophils # (Auto) 8.4 x10^3/uL (1.8-7.7) Lymphocytes # (Auto) 1.4 x10^3/uL (1.0-4.8) Monocytes # (Auto) 0.5 x10^3/uL (0.0-1.1) Eosinophils # (Auto) 0.0 x10^3/uL (0.0-0.7) Basophils # (Auto) 0.1 x10^3/uL (0.0-0.2) Sodium Level 141 mmol/L (136-145) Potassium Level 3.7 mmol/L (3.5-5.1) Chloride Level 104 mmol/L (98-107) Carbon Dioxide Level 29 mmol/L (21-32) Anion Gap 8 (6-14) Blood Urea Nitrogen 23 mg/dL (7-20) Creatinine 1.2 mg/dL (0.6-1.0) Estimated GFR (Cockcroft-Gault) 44.8 BUN/Creatinine Ratio 19 (6-20) Glucose Level 171 mg/dL (70-99) Calcium Level 8.3 mg/dL (8.5-10.1) Magnesium Level 1.7 mg/dL (1.8-2.4) Total Bilirubin 0.3 mg/dL (0.2-1.0) Aspartate Amino Transf (AST/SGOT) 17 U/L (15-37) Alanine Aminotransferase (ALT/SGPT) 26 U/L (14-59) Alkaline Phosphatase 94 U/L (46-116) Troponin I High Sensitivity 5 ng/L (4-50) QZ-Grs-X-Type Natriuretic Peptide 187 pg/mL (0-124) Total Protein 6.9 g/dL (6.4-8.2) Albumin 3.1 g/dL (3.4-5.0) Albumin/Globulin Ratio 0.8 (1.0-1.7) Lipase 147 U/L (73-393) Urine Collection Type Unknown Urine Color Yellow Urine Clarity Clear Urine pH 6.0 (<5.0-8.0) Urine Specific [place] >=1.030 (1.000-1.030) Urine Protein Negative mg/dL (NEG-TRACE) Urine Glucose (UA) Negative mg/dL (NEG) Urine Ketones (Stick) Negative mg/dL (NEG) Urine Blood Negative (NEG) Urine Nitrite Negative (NEG) Urine Bilirubin Negative (NEG) Urine Urobilinogen Dipstick 1.0 mg/dL (0.2 mg/dL) Urine Leukocyte Esterase Negative (NEG) Urine RBC 0 /HPF (0-2) Urine WBC 1-4 /HPF (0-4) Urine Squamous Epithelial Cells Many /LPF Urine Bacteria 0 /HPF (0-FEW) Urine Opiates Screen Neg (NEG) Urine Methadone Screen Neg (NEG) Urine Barbiturates Neg (NEG) Urine Phencyclidine Screen Neg (NEG) Urine Amphetamine/Methamphetamine Neg (NEG) Urine Benzodiazepines Screen Neg (NEG) Urine Cocaine Screen Neg (NEG) Urine Cannabinoids Screen Neg (NEG) Urine Ethyl Alcohol Neg (NEG) Laboratory Tests Test 09/11/21 16:22 09/11/21 17:37 White Blood Count 10.4 x10^3/uL (4.0-11.0) Red Blood Count 4.59 x10^6/uL (3.50-5.40) Hemoglobin 12.0 g/dL (12.0-15.5) Hematocrit 37.6 % (36.0-47.0) Mean Corpuscular Volume 82 fL (79-100) Mean Corpuscular Hemoglobin 26 pg (25-35) Mean Corpuscular Hemoglobin Concent 32 g/dL (31-37) Red Cell Distribution Width 14.2 % (11.5-14.5) Platelet Count 268 x10^3/uL (140-400) Neutrophils (%) (Auto) 81 % (31-73) Lymphocytes (%) (Auto) 14 % (24-48) Monocytes (%) (Auto) 5 % (0-9) Eosinophils (%) (Auto) 0 % (0-3) Basophils (%) (Auto) 1 % (0-3) Neutrophils # (Auto) 8.4 x10^3/uL (1.8-7.7) Lymphocytes # (Auto) 1.4 x10^3/uL (1.0-4.8) Monocytes # (Auto) 0.5 x10^3/uL (0.0-1.1) Eosinophils # (Auto) 0.0 x10^3/uL (0.0-0.7) Basophils # (Auto) 0.1 x10^3/uL (0.0-0.2) Sodium Level 141 mmol/L (136-145) Potassium Level 3.7 mmol/L (3.5-5.1) Chloride Level 104 mmol/L (98-107) Carbon Dioxide Level 29 mmol/L (21-32) Anion Gap 8 (6-14) Blood Urea Nitrogen 23 mg/dL (7-20) Creatinine 1.2 mg/dL (0.6-1.0) Estimated GFR (Cockcroft-Gault) 44.8 BUN/Creatinine Ratio 19 (6-20) Glucose Level 171 mg/dL (70-99) Calcium Level 8.3 mg/dL (8.5-10.1) Magnesium Level 1.7 mg/dL (1.8-2.4) Total Bilirubin 0.3 mg/dL (0.2-1.0) Aspartate Amino Transf (AST/SGOT) 17 U/L (15-37) Alanine Aminotransferase (ALT/SGPT) 26 U/L (14-59) Alkaline Phosphatase 94 U/L (46-116) Troponin I High Sensitivity 5 ng/L (4-50) JH-Bma-N-Type Natriuretic Peptide 187 pg/mL (0-124) Total Protein 6.9 g/dL (6.4-8.2) Albumin 3.1 g/dL (3.4-5.0) Albumin/Globulin Ratio 0.8 (1.0-1.7) Lipase 147 U/L (73-393) Urine Collection Type Unknown Urine Color Yellow Urine Clarity Clear Urine pH 6.0 (<5.0-8.0) Urine Specific [place] >=1.030 (1.000-1.030) Urine Protein Negative mg/dL (NEG-TRACE) Urine Glucose (UA) Negative mg/dL (NEG) Urine Ketones (Stick) Negative mg/dL (NEG) Urine Blood Negative (NEG) Urine Nitrite Negative (NEG) Urine Bilirubin Negative (NEG) Urine Urobilinogen Dipstick 1.0 mg/dL (0.2 mg/dL) Urine Leukocyte Esterase Negative (NEG) Urine RBC 0 /HPF (0-2) Urine WBC 1-4 /HPF (0-4) Urine Squamous Epithelial Cells Many /LPF Urine Bacteria 0 /HPF (0-FEW) Urine Opiates Screen Neg (NEG) Urine Methadone Screen Neg (NEG) Urine Barbiturates Neg (NEG) Urine Phencyclidine Screen Neg (NEG) Urine Amphetamine/Methamphetamine Neg (NEG) Urine Benzodiazepines Screen Neg (NEG) Urine Cocaine Screen Neg (NEG) Urine Cannabinoids Screen Neg (NEG) Urine Ethyl Alcohol Neg (NEG) Images: Images Pending chest CTA and CXR Assessment/Plan Assessment/Plan Atypical chest pain at rest likely due to prednisone use, rule out ACS. Acute urticaria related rash due to dust mites [place] due to vasomotor nephropathy Hypomagnesemia Admit to hospitalist service for observation Continue telemetry monitoring Avoid steroids Zyrtec for urticaria and Benadryl as needed for itchiness Continue IV fluids IV electrolyte replacement as needed SCDs for DVT prophylaxis Cardiac diet CODE STATUS full Discussed with RN and SW Disposition anticipate discharge in the next 24 hours DPOA: Justifications for Admission Other Justification RIKKI CABRERA MD Sep 11, 2021 18:54
--- NOTE | 2021-09-11 20:08 | RAD ---
Exam: CT of chest with contrast INDICATION: Chest pain radiating to back TECHNIQUE: Sequential axial images through the chest obtained following the administration of 90 mL o f Omni 350 IV contrast. Sagittal and coronal reformatted images were reconstructed from the axial amanda a and reviewed. 3-D reformatted images were reconstructed from the axial data and reviewed. Exposure: One or more of the following in the visualized dose reduction techniques were utilized for this examination: 1. Automated exposure control 2. Adjustment of the MA and/or KV according to patient size 3. Use of iterative of reconstructive technique Comparisons: Chest x-ray same day FINDINGS: Visualized portions of the thyroid are unremarkable. No enlarged mediastinal lymph nodes are identifi ed. Heart size is normal. No pericardial effusion. Thoracic aorta has normal course and caliber. Pulmonar y artery is not enlarged. No pulmonary embolus identified within the main, lobar or segmental pulmona ry arteries. Airways are patent. No consolidation or pneumothorax. No suspicious lung nodules. No pleural effusion or thickening. Visualized upper abdomen is unremarkable. No suspicious osseous lesions or acute fractures. IMPRESSION: No pulmonary embolus identified within the main, lobar or segmental pulmonary arteries. Electronically signed by: Dick Thomas MD (09/11/2021 8:05 PM) [facility]
[2021-09-11] MEDS ORDERED: IV NORMAL SALINE 1000ML BAG 1,000 ML IV ONE (21:30)
[2021-09-11 21:40] VITALS: BP 145/64
--- NOTE | 2021-09-11 22:32 | RAD ---
Exam: Chest one view INDICATION: Chest pain TECHNIQUE: Frontal view of the chest Comparisons: None FINDINGS: The cardiomediastinal silhouette and pulmonary vessels are within normal limits. The lung and pleural spaces are clear. IMPRESSION: No acute cardiopulmonary process. Electronically signed by: Dick Thomas MD (09/11/2021 10:30 PM) [facility]
--- NOTE | 2021-09-11 22:44 | NUR ---
per Dr. Rahman, may restart home medications with exception of, zolpidem 5mg may repeat x 1 instead of 10mg at bedtime and hold Celebrex. Medications reconciled
[2021-09-11] MEDS ORDERED: CITALOPRAM 20 MG TABLET. PO SCH (23:00)
[2021-09-11] MEDS: diphenhydrAMINE HCL 25 MG CAPSULE PO PRN (23:36)
[2021-09-11] MEDS: CETIRIZINE HCL 10 MG TABLET. PO SCH (23:36)
[2021-09-11] MEDS: LORazepam 0.5 MG TABLET PO PRN (23:37)
[2021-09-11] MEDS: traMADol 50 MG TABLET PO SCH (23:37)
[2021-09-12 03:00] VITALS: BP 158/72
[2021-09-12 07:00] VITALS: BP 161/81
[2021-09-12 07:22] LABS: CALCIUM 8.4 mg/dL (8.5-10.1); CREATININE 1.1 mg/dL (0.6-1.0); GFR 49.5; MAGNESIUM 2.1 mg/dL (1.8-2.4); PHOSPHORUS 3.1 mg/dL (2.6-4.7); POTASSIUM 3.7 mmol/L (3.5-5.1)
[2021-09-12 07:27] LABS: BASO % 0 % (0-3); EOS % 0 % (0-3); HEMATOCRIT 36.1 % (36.0-47.0); HEMOGLOBIN 11.4 g/dL (12.0-15.5); LYMPH # 1.6 x10^3/uL (1.0-4.8); LYMPH % 17 % (24-48); MEAN CORPUSCULAR HEMOGLOBIN 26 pg (25-35); MEAN CORPUSCULAR HGB CONC 32 g/dL (31-37); MEAN CORPUSCULAR VOLUME 83 fL (79-100); MONO # 0.2 x10^3/uL (0.0-1.1); MONO % 3 % (0-9); NEUT # 7.7 x10^3/uL (1.8-7.7); NEUT % 81 % (31-73); PLATELET COUNT 265 x10^3/uL (140-400); RED BLOOD COUNT 4.35 x10^6/uL (3.50-5.40); RED CELL DISTRIBUTION WIDTH 14.7 % (11.5-14.5); WHITE BLOOD COUNT 9.6 x10^3/uL (4.0-11.0)
[2021-09-12] MEDS ORDERED: ASPIRIN CHEWABLE 81 MG TABLET. PO SCH (08:00)
--- NOTE | 2021-09-12 08:24 | EKG ---
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
[2021-09-12] MEDS ORDERED: LISINOPRIL 20 MG TABLET PO SCH (09:00)
[2021-09-12] MEDS: CETIRIZINE HCL 10 MG TABLET. PO SCH (09:05)
[2021-09-12] MEDS: traMADol 50 MG TABLET PO SCH (09:06)
[2021-09-12] MEDS: LORazepam 0.5 MG TABLET PO PRN (09:11)
[2021-09-12] MEDS ORDERED: HYDR10TA2 PO (09:14)
--- NOTE | 2021-09-12 10:12 | NUR ---
SW following. Discussed with RN, pt from home, room air, cardiac diet, rapid COVID-19 negative. Cardiology following. RN advised no SW needs at this time, possible discharge home today. SW will continue to follow.
[2021-09-12 11:00] VITALS: BP 147/60
[2021-09-12] MEDS: diphenhydrAMINE HCL 25 MG CAPSULE PO PRN (11:40)
[2021-09-12] MEDS ORDERED: IBUPROFEN 200 MG TABLET. PO ONE (12:00)
[2021-09-12] MEDS ORDERED: LIDOCAINE (700MG/PATCH) PATCH. TD SCH (12:00)
--- NOTE | 2021-09-12 12:07 | PDOC2 ---
MADELINE WILSON FIRE BATTALION CHIEF 09/12/21 1207: CARDIAC CONSULT DATE OF CONSULT Date of Consult DATE: 09/12/21 TIME: 11:45 REASON FOR CONSULT Reason for Consult: Chest pain REFERRING PHYSICIAN Referring Physician: Jr SOURCE Source: Chart review, Patient HISTORY OF PRESENT ILLNESS HISTORY OF PRESENT ILLNESS This is a pleasant 65 yo female admitted for complains of rash and chest pain. Reports that on the weekend he did a deep clean in her house. She then had some hand swelling and developed rash which became more significant 2 days later. She went to urgent care and was given prednisone. She could not tell me why she was given amoxicillin but took prednisone Thursday and started taking amoxicillin Thursday. The day after her rash was around her breast and neck and was having chest tightness which started about 2 days ago. Denies any SOA or swelling around her mouth. She was admitted and was given further antihistamines and was better. Described some of her rash as "welts". This rash is no fidel and is not itchy anymore. No prior hx of CAD, VTE or arrhythmias. No chest pain or SOA during her house deep cleaning which required heavy exertion. PAST MEDICAL HISTORY Cardiovascular: HTN Psych: Anxiety Musculoskeletal: Osteoarthritis PAST SURGICAL HISTORY Past Surgical History: Appendectomy, Total knee replacement (left), Hysterectomy FAMILY HISTORY Family History noncontributory SOCIAL HISTORY Smoke: Quit ALCOHOL: none Drugs: None Lives: with Family CURRENT MEDICATIONS CURRENT MEDICATIONS Current Medications Medications (Trade) Dose Ordered Sig/Emili Route PRN Reason Start Time Stop Time Status Last Admin Dose Admin Fentanyl Citrate (Fentanyl 2ml Vial) 50 mcg 1X ONCE IVP 09/11/21 16:30 09/11/21 16:31 DC 09/11/21 17:00 Methylprednisolone Sodium Succinate (SOLU-Medrol 125MG VIAL) 125 mg 1X ONCE IV 09/11/21 16:30 09/11/21 16:31 DC 09/11/21 16:54 Famotidine (Pepcid Vial) 20 mg 1X ONCE IVP 09/11/21 16:30 09/11/21 16:31 DC 09/11/21 16:58 Diphenhydramine HCl (Benadryl) 25 mg 1X ONCE IVP 09/11/21 16:30 09/11/21 16:31 DC 09/11/21 16:30 Iohexol (Omnipaque 350 Mg/ml) 90 ml 1X ONCE IV 09/11/21 17:15 09/11/21 17:16 DC 09/11/21 17:11 Magnesium Sulfate 50 ml @ 25 mls/hr 1X ONCE IV 09/11/21 17:15 09/11/21 19:14 DC 09/11/21 17:42 Lorazepam (Ativan) 0.5 mg PRN Q6HRS PRN PO ANXIETY / AGITATION 09/11/21 18:45 09/12/21 09:11 Diphenhydramine HCl (Benadryl) 25 mg PRN Q6HRS PRN PO ITCHING 09/11/21 18:45 09/12/21 11:40 Sodium Chloride 1,000 ml @ 125 mls/hr 1X ONCE IV 09/11/21 21:30 09/12/21 05:29 DC 09/11/21 23:42 Cetirizine HCl (ZyrTEC) 10 mg DAILY PO 09/11/21 22:00 09/12/21 09:05 Aspirin (Aspirin Chewable) 81 mg DAILYWBKFT PO 09/12/21 08:00 09/12/21 09:05 Citalopram Hydrobromide (CeleXA) 40 mg HS PO 09/11/21 23:00 09/11/21 23:36 Tramadol HCl (Ultram) 100 mg BID PO 09/11/21 23:00 09/12/21 09:06 Amlodipine Besylate (Norvasc) 10 mg DAILY PO 09/12/21 09:00 09/12/21 09:06 Zolpidem Tartrate (Ambien) 5 mg PRN QHS PRN PO INSOMNIA, MAY REPEAT X1 09/11/21 22:30 09/11/21 23:37 Lisinopril (Prinivil) 20 mg DAILY PO 09/12/21 09:00 09/12/21 09:05 Lidocaine (Lidoderm) 1 patch DAILY TD 09/12/21 12:00 09/12/21 11:43 Ibuprofen (Motrin) 600 mg 1X ONCE PO 09/12/21 12:00 09/12/21 12:01 09/12/21 11:40 ALLERGIES ALLERGIES: Coded Allergies: latex (Verified Allergy, Intermediate, 09/11/21) morphine (Verified Allergy, Mild, SICK, 09/11/21) ROS Review of System 14 point ROS evaluated with pertinent positives noted per HPI PHYSICAL EXAM General: Alert, Oriented X3, Cooperative, No acute distress HEENT: Atraumatic, Mucous membr. moist/pink Lungs: Clear to auscultation, Normal air movement Heart: Regular rate (SR), Normal S1, Normal S2, No murmurs Abdomen: Soft, No tenderness Extremities: No cyanosis, No edema Skin: No breakdown, No significant lesion Neuro: Normal speech, Sensation intact Psych/Mental Status: Mental status NL, Mood NL MUSCULOSKELETAL: Osteoarthritic changes both hands VITALS/I&O VITALS/I&O: Vital Signs Date Time Temp Pulse Resp B/P (MAP) Pulse Ox O2 Delivery O2 Flow Rate FiO2 09/12/21 11:00 98.3 92 16 147/60 (89) 93 Room Air 98.3 I & O 09/11/21 09/11/21 09/12/21 15:00 23:00 07:00 Intake Total 50 ml 120 ml Balance 50 ml 120 ml LABS Lab: Laboratory Tests Test 09/11/21 16:22 09/11/21 17:37 09/11/21 18:25 09/11/21 18:30 White Blood Count 10.4 x10^3/uL (4.0-11.0) Red Blood Count 4.59 x10^6/uL (3.50-5.40) Hemoglobin 12.0 g/dL (12.0-15.5) Hematocrit 37.6 % (36.0-47.0) Mean Corpuscular Volume 82 fL (79-100) Mean Corpuscular Hemoglobin 26 pg (25-35) Mean Corpuscular Hemoglobin Concent 32 g/dL (31-37) Red Cell Distribution Width 14.2 % (11.5-14.5) Platelet Count 268 x10^3/uL (140-400) Neutrophils (%) (Auto) 81 % (31-73) H Lymphocytes (%) (Auto) 14 % (24-48) L Monocytes (%) (Auto) 5 % (0-9) Eosinophils (%) (Auto) 0 % (0-3) Basophils (%) (Auto) 1 % (0-3) Neutrophils # (Auto) 8.4 x10^3/uL (1.8-7.7) H Lymphocytes # (Auto) 1.4 x10^3/uL (1.0-4.8) Monocytes # (Auto) 0.5 x10^3/uL (0.0-1.1) Eosinophils # (Auto) 0.0 x10^3/uL (0.0-0.7) Basophils # (Auto) 0.1 x10^3/uL (0.0-0.2) Sodium Level 141 mmol/L (136-145) Potassium Level 3.7 mmol/L (3.5-5.1) Chloride Level 104 mmol/L (98-107) Carbon Dioxide Level 29 mmol/L (21-32) Anion Gap 8 (6-14) Blood Urea Nitrogen 23 mg/dL (7-20) H Creatinine 1.2 mg/dL (0.6-1.0) H Estimated GFR (Cockcroft-Gault) 44.8 BUN/Creatinine Ratio 19 (6-20) Glucose Level 171 mg/dL (70-99) H Calcium Level 8.3 mg/dL (8.5-10.1) L Magnesium Level 1.7 mg/dL (1.8-2.4) L Total Bilirubin 0.3 mg/dL (0.2-1.0) Aspartate Amino Transferase (AST) 17 U/L (15-37) Alanine Aminotransferase (ALT) 26 U/L (14-59) Alkaline Phosphatase 94 U/L (46-116) Troponin I High Sensitivity 5 ng/L (4-50) 7 ng/L (4-50) TH-Azx-Q-Type Natriuretic Peptide 187 pg/mL (0-124) H Total Protein 6.9 g/dL (6.4-8.2) Albumin 3.1 g/dL (3.4-5.0) L Albumin/Globulin Ratio 0.8 (1.0-1.7) L Lipase 147 U/L (73-393) Urine Collection Type Unknown Urine Color Yellow Urine Clarity Clear Urine pH 6.0 (<5.0-8.0) Urine Specific [place] >=1.030 (1.000-1.030) Urine Protein Negative mg/dL (NEG-TRACE) Urine Glucose (UA) Negative mg/dL (NEG) Urine Ketones (Stick) Negative mg/dL (NEG) Urine Blood Negative (NEG) Urine Nitrite Negative (NEG) Urine Bilirubin Negative (NEG) Urine Urobilinogen Dipstick 1.0 mg/dL (0.2 mg/dL) Urine Leukocyte Esterase Negative (NEG) Urine RBC 0 /HPF (0-2) Urine WBC 1-4 /HPF (0-4) Urine Squamous Epithelial Cells Many /LPF Urine Bacteria 0 /HPF (0-FEW) Urine Opiates Screen Neg (NEG) Urine Methadone Screen Neg (NEG) Urine Barbiturates Neg (NEG) Urine Phencyclidine Screen Neg (NEG) Urine Amphetamine/Methamphetamine Neg (NEG) Urine Benzodiazepines Screen Neg (NEG) Urine Cocaine Screen Neg (NEG) Urine Cannabinoids Screen Neg (NEG) Urine Ethyl Alcohol Neg (NEG) SARS-CoV-2 RNA (HARDEEP) Negative (Negative) SARS-CoV-2 Antigen (Rapid) Negative (NEGATIVE) Test 09/11/21 22:25 09/12/21 04:20 Troponin I High Sensitivity 7 ng/L (4-50) White Blood Count 9.6 x10^3/uL (4.0-11.0) Red Blood Count 4.35 x10^6/uL (3.50-5.40) Hemoglobin 11.4 g/dL (12.0-15.5) L Hematocrit 36.1 % (36.0-47.0) Mean Corpuscular Volume 83 fL (79-100) Mean Corpuscular Hemoglobin 26 pg (25-35) Mean Corpuscular Hemoglobin Concent 32 g/dL (31-37) Red Cell Distribution Width 14.7 % (11.5-14.5) H Platelet Count 265 x10^3/uL (140-400) Neutrophils (%) (Auto) 81 % (31-73) H Lymphocytes (%) (Auto) 17 % (24-48) L Monocytes (%) (Auto) 3 % (0-9) Eosinophils (%) (Auto) 0 % (0-3) Basophils (%) (Auto) 0 % (0-3) Neutrophils # (Auto) 7.7 x10^3/uL (1.8-7.7) Lymphocytes # (Auto) 1.6 x10^3/uL (1.0-4.8) Monocytes # (Auto) 0.2 x10^3/uL (0.0-1.1) Eosinophils # (Auto) 0.0 x10^3/uL (0.0-0.7) Basophils # (Auto) 0.0 x10^3/uL (0.0-0.2) Sodium Level 141 mmol/L (136-145) Potassium Level 3.7 mmol/L (3.5-5.1) Chloride Level 103 mmol/L (98-107) Carbon Dioxide Level 26 mmol/L (21-32) Anion Gap 12 (6-14) Blood Urea Nitrogen 26 mg/dL (7-20) H Creatinine 1.1 mg/dL (0.6-1.0) H Estimated GFR (Cockcroft-Gault) 49.5 Glucose Level 244 mg/dL (70-99) H Calcium Level 8.4 mg/dL (8.5-10.1) L Phosphorus Level 3.1 mg/dL (2.6-4.7) Magnesium Level 2.1 mg/dL (1.8-2.4) Laboratory Tests 09/11/21 16:22 09/12/21 04:20 Laboratory Tests 09/11/21 16:22 09/12/21 04:20 ASSESSMENT/PLAN ASSESSMENT/PLAN 1. Chest pain: noncardiac, likely MSK 2. Allergic reaction: could be from dust/mites from recent house deep cleaning. PCN allergy? 3. Mild CHAPINCITO: prerenal 4. HTN: labile episodes Recommendations 1. No further cardiac workup. 2. Restart home BP meds. December DC per cardiac standpoint NICOLETTE NEAL MD 09/12/21 1733: CARDIAC CONSULT ASSESSMENT/PLAN ASSESSMENT/PLAN The patient was seen and interviewed as well as examined at the bedside. The chart was reviewed. The case was discussed. Agree with the plan of care. Given the patient's age, risk factors we will plan for a outpatient stress test. MADELINE WILSON APRN Sep 12, 2021 12:07 NICOLETTE NEAL MD Sep 12, 2021 17:33
[2021-09-12] MEDS ORDERED: CETI10TA16 PO (12:40)
--- NOTE | 2021-09-12 12:41 | DISCH ---
DISCHARGE INSTRUCTIONS Condition on Discharge Condition on Discharge: Stable Activity After Discharge Activity Instructions for Disc: Activity as tolerated, Other, see below Bathing Instructions: No Tub Bath until see Lifting Instructions after Dis: No heavy lifting, No pulling or pushing, Do not lift >10 pounds Driving Instructions after Dis: Do not drive today Weight Bearing Status after Di: As tolerated, Other, see below Diet after Discharge Diet after Discharge: Cardiac, Regular Follow-Up Follow up with: PCP within 2 weeks of discharge Follow Up With: Systems Checkout Mechanic as soon as possible RIKKI CABRERA MD Sep 12, 2021 12:41
[2021-09-12] MEDS ORDERED: LIDO700A21 TD (12:42)
[2021-09-12 15:00] VITALS: BP 159/72
--- NOTE | 2021-09-12 16:57 | NUR ---
Pt discharged home with self care. Discharge instructions and prescriptions discussed. Pt packed belongings on her own. Ambulated to entrance and was secured in car with spouse.
[2021-09-12] MEDS ORDERED: PATCH REMOVAL. MC SCH (21:00)
--- NOTE | 2021-09-13 16:18 | PDOC3 ---
[facility]-Discharge Summary Date of Admission: Date of Admission: Sep 11, 2021 Date of Discharge: Date of Discharge: Sep 12, 2021 Discharge Diagnosis: Discharge Diagnosis: Atypical chest pain at rest likely due to prednisone use, rule out ACS. Acute urticaria related rash due to dust mites CHAPINCITO due to vasomotor nephropathy Hypomagnesemia Hospital Course: Hospital Course: 65-year-old female with past medical history of depression, hypertension, dyslipidemia who comes in for evaluation for chest pain. She also had a rash when she went to urgent care on Thursday and she was given prednisone for 3 days. She describes the rash as swelling on her extremities and itchiness on her scalp under her breast, under her armpits, and her wrist and hands. She did notice chest pain on Thursday that was substernal in nature and radiated to her back. She also had pain on her daughter back and neck. She was given 325 mg of aspirin and nitro sublingual tablet and it did relieve her pain. Pain was 10 out of 10. Patient is vaccinated for Covid Upon further questioning, patient was cleaning out her house with her grandchildren. She was moving furniture around and cleaning all fortunato curtains and linens. By day of discharge patient's chest pain improved. Her rash also improved with some Benadryl, Zyrtec and hydrocortisone cream. Cardiology evaluated and deemed no necessary further cardiac work-up. Rest of hospital course was uneventful. Disposition: Disposition/Orders: D/C to Home Activity: Activity: Resume previous activity Diet: Diet: Cardiac Medications: Home Meds Active Scripts Lidocaine (Lidocaine PATCH ) 1 Each Adh..patch, 1 PATCH TD DAILY for back pain for 30 Days, #30 PATCH Prov:RIKKI CABRERA MD 09/12/21 Cetirizine Hcl (CETIRIZINE HCL) 10 Mg Tablet, 10 MG PO DAILY for urticaria for 30 Days, #30 TAB 2 Refills Prov:RIKKI CABRERA MD 09/12/21 Reported Medications Hydroxyzine Hcl (HYDROXYZINE HCL) 10 Mg Tablet, 10 MG PO PRN Q6HRS PRN for ANXIETY / AGITATION, TAB 09/12/21 Tramadol Hcl (TRAMADOL HCL) 50 Mg Tablet, 100 MG PO BID for pain, TAB 0 Refills 03/05/19 Citalopram Hydrobromide (CITALOPRAM HBR) 20 Mg Tablet, 2 TAB PO HS for depression, #30 TAB 5 Refills 04/08/16 Zolpidem Tartrate (ZOLPIDEM TARTRATE) 10 Mg Tablet, 10 MG PO HS 07/26/13 Amlodipine Besylate/Benazepril (AMLODIPINE-BENAZEPRIL 10-20 MG) 1 Each Capsule, 1 EACH PO DAILY 07/26/13 Discontinued Reported Medications Celecoxib (CELEBREX) 200 Mg Capsule, 200 MG PO BID for 30 Days, CAP 0 Refills 04/08/16 Alprazolam (ALPRAZOLAM) 0.5 Mg Tablet, 1 TAB PO TID for anxiety, #90 TAB 03/05/19 Scheduled Amlodipine Besylate/Benazepril (Amlodipine-Benazepril 10-20 Mg), 1 EACH PO DAILY, (Reported) Cetirizine Hcl (Cetirizine Hcl), 10 MG PO DAILY Citalopram Hydrobromide (Citalopram Hbr), 2 TAB PO HS, (Reported) Lidocaine (Lidocaine PATCH ), 1 PATCH TD DAILY Tramadol Hcl (Tramadol Hcl), 100 MG PO BID, (Reported) Zolpidem Tartrate (Zolpidem Tartrate), 10 MG PO HS, (Reported) Scheduled PRN Hydroxyzine Hcl (Hydroxyzine Hcl), 10 MG PO PRN Q6HRS PRN for ANXIETY / AG ITATION, (Reported) Discontinued Medications Alprazolam (Alprazolam), 1 TAB PO TID, (Reported) Celecoxib (Celebrex), 200 MG PO BID, (Reported) Total Time: Total Time: Total time spent was 32 minutes in preparing scripts, discharge planning with SWI and RN and preparing this discharge summary Patient seen and examined on day of discharge. No acute abnormal findings. Justicifation of Admission Dx: Justifications for Admission: Justification of Admission Dx: Yes Angina: New-Onset RIKKI CABRERA MD Sep 13, 2021 16:18
== END 2021-09-12 17:00 | disposition home or self-care (01) ==
LOC: ER 16:02 → ED HOLD 18:30 → INTOOBSV 18:30 → 5 SOUTH 20:00
PROVIDERS: ADMIT Internal Medicine; ATTEND Internal Medicine
DX: R07.89 Other chest pain (principal); Z20.822 Contact with and (suspected) exposure to COVID-19; L50.9 Urticaria, unspecified; N17.0 Acute kidney failure with tubular necrosis; E83.42 Hypomagnesemia; I11.0 Hypertensive heart disease with heart failure; I50.9 Heart failure, unspecified; M19.90 Unspecified osteoarthritis, unspecified site; F41.9 Anxiety disorder, unspecified; F32.A Depression, unspecified; K57.92 Diverticulitis of intestine, part unspecified, without perforation or abscess without bleeding; E78.00 Pure hypercholesterolemia, unspecified; E78.5 Hyperlipidemia, unspecified; T38.0X5A Adverse effect of glucocorticoids and synthetic analogues, initial encounter; Z90.49 Acquired absence of other specified parts of digestive tract; Z90.710 Acquired absence of both cervix and uterus; Z87.891 Personal history of nicotine dependence; Z96.652 Presence of left artificial knee joint; Z79.82 Long term (current) use of aspirin; Z79.899 Other long term (current) drug therapy; Z98.890 Other specified postprocedural states; X50.0XXA Overexertion from strenuous movement or load, initial encounter
CPT/HCPCS: 36415; 71045; 71275; 80048; 80053; 80307; 81001; 83690; 83735; 83880; 84100; 84484; 85025; 87426; 93005; 96361; 96365; 96366; 96375; 99285; G0378; J1200; J2930; J3010; J3475; J3490; J7030; Q0163; Q9967; U0003; U0005; G0379